=== PATIENT | female | born 1980 | race Caucasian/White ===

== ENCOUNTER 2022-01-10 13:29 | Emergency (ER) | payer OTHER ==
[2022-01-10] MEDS ORDERED: HYDROmorphone 1 MG/ML CARPUJECT IM STA (13:52)
--- NOTE | 2022-01-10 13:53 | ED Physician Documentation ---
PD HPI BACK PAIN - Stated complaint Stated Complaint: LOWER BACK PX,SPASM - Chief complaint Chief Complaint: Trauma Ch/Bk - History obtained from History obtained from: Patient - Additional information Additional information: Otherwise healthy 41-year-old woman with no chance of fell off her horse about an hour and a half ago landing directly on her back. She has severe low back pain. No other injuries save an abrasion on the left elbow. She took Tylenol and ibuprofen prior to arrival which were not helpful. Review of Systems Constitutional: reports: Reviewed and negative Eyes: reports: Reviewed and negative Throat: reports: Reviewed and negative Cardiac: reports: Reviewed and negative PD PAST MEDICAL HISTORY - Present Medications Home Medications: Ambulatory Orders Medication Instructions Recorded Confirmed HYDROcod/ACETAM 5/325 [[place] 5/325] 1 - 2 tab PO Q6H PRN #20 tablet 01/10/22 - Allergies Allergies/Adverse Reactions: Allergies Allergy/AdvReac Type Severity Reaction Status Date / Time No Known Drug Allergies Allergy Verified 01/10/22 13:37 PD ED PE NORMAL - Vitals Vital signs reviewed: Yes - General General: Alert and oriented X 3, No acute distress - Neck Neck: Supple, no meningeal sign, No bony TTP - Cardiac Cardiac: RRR, No murmur - Respiratory Respiratory: No respiratory distress, Clear bilaterally - Abdomen Abdomen: Non tender - Derm Derm: Other (Abrasion left elbow, nontender, from) - Extremities Extremities: Other (Tender the left side of the lumbar spine high up. Limited range of motion due to pain.) - Neuro Neuro: Alert and oriented X 3, Normal speech, Other (The patient has equal and normal Achilles and patellar reflexes bilaterally. Normal sensation in all areas of the legs. Patient denies saddle anesthesia. Normal strength in flexion-extension at the ankles, knees, and flexion of the hips.) Results - Vitals Vitals: Vital Signs - 24 hr 01/10/22 01/10/22 13:34 14:40 Temperature 36.6 C 36.5 C Heart Rate 81 80 Respiratory 14 16 Rate Blood Pressure 151/105 H 128/82 H O2 Saturation 99 98 Oxygen O2 Source Room air PD MEDICAL DECISION MAKING - ED course ED course: 41-year-old woman who has an isolated back injury. Both clinically and by CT has transverse process fractures and these were discussed with her. Departure - Departure Disposition: 01 Home, Self Care Clinical Impression: Multiple transverse process fractures Condition: Good Record reviewed to determine appropriate education?: Yes Instructions: ED Fx Transverse Spinous Process Prescriptions: HYDROcod/ACETAM 5/325 [[place] 5/325] 1 - 2 tab PO Q6H PRN #20 tablet PRN Reason: Pain Comments: I sent your prescription electronically to [facility] in [place]. Follow-up with your doctor next week for recheck., Return for new or worsening symptoms. I am prescribing a short course of narcotic pain medication for you. These are potentially dangerous and addictive medications that should be used carefully. These medications may constipate you. Take an yuqj-ney-hoguitg stool softener (docusate) twice daily with plenty of water while taking these medications. If you go 24 hours without a bowel movement, take rtnz-cla-fonjctu miralax, per package instructions. Do not drink or drive while taking these medications. If you received narcotic or sedating medications while in the emergency department, do not drive for 24 hours. Store this medication in a safe, secure place and out of reach of children. It is a violation of federal law to give or sell this medication to another person or to use in a manner other than prescribed. The ED will not refill narcotic prescriptions, including prescriptions lost or stolen. To dispose of unwanted medications: 1. [facility] at [address] in [place] has a medication drop box. They accept prescription medications (in pill form) Saturday through Saturday 9:00 a.m. to 5:00 p.m. 2. [facility] [employer] accepts prescription medications (in pill form only) for disposal year round. Call for more information. 3. Contact the [facility] for the next [facility] sponsored prescription drug collection event. , [phone], or [phone]; Note that many narcotic pain relievers also contain Tylenol/acetaminophen. Please ensure that your total dose of acetaminophen from all sources does not exceed 3 g (3000 mg) per day. Discharge Date/Time: 01/10/22 14:39
--- NOTE | 2022-01-10 14:33 | CT Report ---
PROCEDURE: LUMBAR SPINE WO INDICATIONS: Trauma, back pain TECHNIQUE: Noncontrast 3 mm thick sections acquired from the T12 level to the sacrum. Sagittal and coronal refo rmats were constructed. For radiation dose reduction, the following was used: automated exposure co ntrol, adjustment of mA and/or kV according to patient size. COMPARISON: None. FINDINGS: Acute mildly displaced fractures of the left L1, L2, and L3 transverse processes. Bones otherwise int act. Mild lower lumbar spine degenerative changes. Normal alignment. No suspicious lytic or blastic o sseous lesion. Regional soft tissues are within normal limits. IMPRESSION: Acute and mildly displaced left L1, L2, and L3 transverse process fractures. Reviewed by: Gabino Askew MD on 01/10/2022 2:32 PM PDT Approved by: Gabino Askew MD on 01/10/2022 2:32 PM PDT Station ID: [id number]
[2022-01-10 14:41] VITALS: BP 128/82
== END 2022-01-10 14:39 | disposition home or self-care (01) ==
LOC: ED 13:29
DX: S32.019A Unspecified fracture of first lumbar vertebra, initial encounter for closed fracture (principal); S32.029A Unspecified fracture of second lumbar vertebra, initial encounter for closed fracture; S32.039A Unspecified fracture of third lumbar vertebra, initial encounter for closed fracture; V80.010A Animal-rider injured by fall from or being thrown from horse in noncollision accident, initial encounter
CPT/HCPCS: 72131; 96372; 99282; 99284; J1170

== ENCOUNTER 2022-11-20 10:01 | Emergency (ER) | payer OTHER ==
--- NOTE | 2022-11-20 11:03 | ED Physician Documentation ---
PD HPI HEENT - Stated complaint Stated Complaint: BODY ACHES/FEVER - Chief complaint Chief Complaint: Resp - History obtained from History obtained from: Patient - Additional information Additional information: The patient comes to the emergency department chief complaint of cough, sore throat, congestion, and fevers for the last week. She states her temperature was 103 this morning. She denies any nausea, vomiting, or dysuria. She states quite confident that the symptoms are all related to the same respiratory illness that she has. She states her son and her daughter have both been ill with something similar and that her daughter got over it fairly quickly, but her son was still having a fever yesterday. She states he was diagnosed with human metapneumovirus recently. No other complaints at this time. The patient states she is otherwise healthy. PD PAST MEDICAL HISTORY - Past Medical History Past Medical History: Yes Cardiovascular: Hypertension Respiratory: None Neuro: None Endocrine/Autoimmune: None GI: None COATER OPERATOR: Fibroids : None HEENT: None Psych: Depression, Anxiety Musculoskeletal: None Derm: None - Past Surgical History Past Surgical History: Yes Ortho: Other /COATER OPERATOR: Breast implants, Other - Present Medications Home Medications: Ambulatory Orders Medication Instructions Recorded Confirmed Escitalopram [Lexapro] 10 mg PO DAILY 11/20/22 11/20/22 - Allergies Allergies/Adverse Reactions: Allergies Allergy/AdvReac Type Severity Reaction Status Date / Time No Known Drug Allergies Allergy Verified 11/20/22 10:13 - Social History Does the pt smoke?: No Smoking Status: Never smoker Does the pt drink ETOH?: Yes ETOH Use: Wine Does the pt have substance abuse?: No - Immunizations Immunizations are current?: Yes PD ED PE NORMAL - Vitals Vital signs reviewed: Yes - General General: Alert and oriented X 3, No acute distress, Well developed/nourished - HEENT HEENT: Atraumatic, PERRL, EOMI, Moist mucous membranes, Pharynx benign - Neck Neck: Supple, no meningeal sign - Cardiac Cardiac: RRR, No murmur - Respiratory Respiratory: No respiratory distress, Clear bilaterally - Abdomen Abdomen: Soft, Non tender, Non distended - Derm Derm: Normal color, Warm and dry, No rash - Extremities Extremities: No deformity - Neuro Neuro: Alert and oriented X 3 - Psych Psych: Normal mood, Normal affect Results - Vitals Vitals: Oxygen O2 Source Room air - Labs Labs: Laboratory Tests 11/20/22 10:15 Nasal Adenovirus (PCR) NOT DETECTED Nasal B. parapertussis DNA (PCR) NOT DETECTED Nasal Coronavir 229E PCR NOT DETECTED Nasal Coronavir HKU1 PCR NOT DETECTED Nasal Coronavir NL63 PCR NOT DETECTED Nasal Coronavir OC43 PCR NOT DETECTED Nasal Enterovir/Rhinovir PCR NOT DETECTED Nasal Influenza B PCR NOT DETECTED Nasal Influenza A PCR NOT DETECTED Nasal Parainfluen 1 PCR NOT DETECTED Nasal Parainfluen 2 PCR NOT DETECTED Nasal Parainfluen 3 PCR NOT DETECTED Nasal Parainfluen 4 PCR NOT DETECTED Nasal RSV (PCR) NOT DETECTED Nasal B.pertussis DNA PCR NOT DETECTED Nasal C.pneumoniae (PCR) NOT DETECTED Ba Human Metapneumo PCR NOT DETECTED Nasal M.pneumoniae (PCR) NOT DETECTED Nasal SARS-CoV-2 (PCR) NOT DETECTED PD Medical Decision Making - ED course Complexity details: reviewed results, re-evaluated patient, considered differential, d/w patient ED course: The patient had taken ibuprofen at home and was afebrile here in the emergency department. She was worked up with a respiratory PCR panel and a chest x-ray, both of which were ordered and reviewed by me, and negative for acute findings. We have discussed the expected course of illness, symptomatic management at home, and the usual indications for return. Departure - Departure Disposition: 01 Home, Self Care Clinical Impression: Viral syndrome Condition: Stable Instructions: ED Viral Syndrome Comments: Your chest x-ray looks good. Your viral panel did not picket [employer] on any of the viruses that we can test for, though there are many in the environment that cause similar symptoms for which we do not have a test. Most likely, your symptoms will subside in the next week or so. Please follow-up with your primary doctor for further concerns. If you become severely short of breath with worsening cough, please seek medical reevaluation here or in the walk-in clinic for repeat x-ray. Discharge Date/Time: 11/20/22 11:59
[2022-11-20 11:10] LABS: B. PARAPERTUSSIS- RESP PCR PAN NOT DETECTED; B. PERTUSSIS- RESP PCR PANEL NOT DETECTED; C. PNEUMONIAE- RESP PCR PANEL NOT DETECTED; CORONAVIRUS 229E-RESP PCR NOT DETECTED; CORONAVIRUS HKU1-RESP PCR NOT DETECTED; CORONAVIRUS NL63-RESP PCR NOT DETECTED; CORONAVIRUS OC43-RESP PCR NOT DETECTED; HUMAN METAPNEUMOVIRUS NOT DETECTED; INFLUENZA A- RESP PCR PANEL NOT DETECTED; INFLUENZA B - RESP PCR PANEL NOT DETECTED; M. PNEUMONIAE- RESP PCR PANEL NOT DETECTED; PARAINFLUENZA VIRUS 1 NOT DETECTED; PARAINFLUENZA VIRUS 2 NOT DETECTED; PARAINFLUENZA VIRUS 3 NOT DETECTED; PARAINFLUENZA VIRUS 4 NOT DETECTED; RHINOVIRUS/ENTEROVIRUS NOT DETECTED; RSV- RESP PCR PANEL NOT DETECTED; SARS-CoV-2 -RESP PCR PANEL NOT DETECTED
--- NOTE | 2022-11-20 11:29 | XRAY Report ---
PROCEDURE: Chest 1 View X-Ray INDICATIONS: cough/fever TECHNIQUE: One view of the chest was acquired. COMPARISON: None. FINDINGS: Surgical changes and devices: None. Lungs and pleura: No pleural effusions or pneumothorax. Linear atelectasis in right lower lung field is seen. Left lung is clear. Mediastinum: Mediastinal contours appear normal. Heart size is normal. Bones and chest wall: No suspicious bony lesions. Overlying soft tissues appear unremarkable. IMPRESSION: Linear scarring/atelectasis in right lower lung field. No focal infiltrate, pleural effusion or pneum othorax. Reviewed by: Jhon Rutledge MD on 11/20/2022 11:27 AM PST Approved by: Jhon Rutledge MD on 11/20/2022 11:27 AM PST Station ID: [id number]
[2022-11-20 12:00] VITALS: BP 136/87
== END 2022-11-20 11:59 | disposition home or self-care (01) ==
LOC: ED 10:01
DX: B34.9 Viral infection, unspecified (principal); Z20.822 Contact with and (suspected) exposure to COVID-19
CPT/HCPCS: 87633; 99283; 99284